=== PATIENT | female | born 1985 | race Caucasian/White ===

== ENCOUNTER 2016-10-29 04:24 | Emergency (ER) | payer OTHER ==
[~2016-10-29] VITALS: Ht 157.5 cm; Wt 40.8 kg
[2016-10-29 04:55] LABS: NEG OBC UR NEG; POS OBC UR POS
[2016-10-29 05:00] LABS: BILIRUBIN,URINE NEGATIVE (NEG); GLUCOSE,URINE NEGATIVE (NEG); NITRITE,URINE NEGATIVE (NEG); PH,URINE 5.5; PROTEIN,URINE NEGATIVE (NEG-TRACE); UROBILINOGEN,URINE 0.2 mg/dL (0.2 mg/dL)
[2016-10-29 05:07] LABS: BACTERIA,URINE FEW /HPF (0-FEW); RBC,URINE OCC /HPF (0-2); SQUAMOUS EPITHELIAL CELL,UR MOD /LPF
[2016-10-29] MEDS ORDERED: FENTANYL PF 100 MCG/2 ML VIAL. IV PRN (05:15)
[2016-10-29] MEDS ORDERED: ONDANSETRON PF 4 MG/2 ML VIAL. IV ONE (05:15)
[2016-10-29] MEDS ORDERED: IV NORMAL SALINE 1000ML BAG 1,000 ML IV SCH (05:15)
--- NOTE | 2016-10-29 05:18 | ED.ADGEN ---
Past Medical History Past Medical History: Unknown Additional Past Medical Histor: BARTHOLINS CYST Past Surgical History: No Surgical History Alcohol Use: None Drug Use: Marijuana Adult General Chief Complaint Chief Complaint: OTHER COMPLAINTS HPI HPI Patient is a 30 year old woman, history of a Bartholin's abscess, which she states was last drained about 3 months ago, has been drained once before, who presents emergency Department with complaint of right-sided pain. Patient states that she had a single episode of sharp shooting pain across her abdomen starting left side going to the right yesterday. She denies any fevers or chills , any headache, any weakness or tingling, any injuries. She states that she went to work today, was feeling generally unwell, so that she then had several episodes of vomiting, and developed pain in her right upper and right lower quadrants, radiating along this right side, that she is having pain with motion of her right lower extremity, denies any pelvic pain, any discharge or drainage , any urinary complaints. Denies any similar symptoms previously. Review of Systems Review of Systems Constitutional: Denies fever or chills. [] Eyes: Denies change in visual acuity. [] HENT: Denies nasal congestion or sore throat. [] Respiratory: Denies cough or shortness of breath. [] Cardiovascular: Denies chest pain or edema. [] GI: Right upper and right lower quadrant abdominal pain, associated with nausea , vomiting, no bloody stools or diarrhea. : Denies dysuria. [] Musculoskeletal: Denies back pain or joint pain. [] Integument: Denies rash. [] Neurologic: Denies headache, focal weakness or sensory changes. [] Endocrine: Denies polyuria or polydipsia. [] Lymphatic: Denies swollen glands. [] Psychiatric: Denies depression or anxiety. [] Current Medications Current Medications Current Medications Medications (Trade) Dose Ordered Sig/Naeem Start Time Stop Time Status Last Admin Dose Admin Fentanyl Citrate 25 mcg 25 mcg PRN Q15MIN PRN 10/29/16 05:15 10/29/16 08:26 DC 10/29/16 05:17 25 MCG Info (Do NOT chart on this entry -- for MONITORING) 1 each PRN DAILY PRN 10/29/16 06:30 10/29/16 08:26 DC Iohexol (Omnipaque 300 Mg/ml) 75 ml 1X ONCE 10/29/16 06:15 10/29/16 06:16 DC 10/29/16 06:21 75 ML Ondansetron HCl (Zofran) 4 mg 1X ONCE 10/29/16 05:15 10/29/16 05:16 DC 10/29/16 05:16 4 MG Sodium Chloride (Iv Sodium Chloride 0.9% 1000ml Bag) 1,000 ml @ 1,000 mls/hr Q1H 10/29/16 05:15 10/29/16 06:14 DC 10/29/16 05:16 1,000 MLS/HR Allergies Allergies Allergies Coded Allergies Type Severity Reaction Last Updated Verified Penicillins Allergy Unknown Hives 10/29/16 Yes sulfamethoxazole Allergy Unknown Hives 10/29/16 Yes trimethoprim Allergy Unknown Hives 10/29/16 Yes Physical Exam Physical Exam Constitutional: Well developed, well nourished, no acute distress, non-toxic appearance. [] HENT: Normocephalic, atraumatic, bilateral external ears normal, oropharynx moist, no oral exudates, nose normal. [] Eyes: PERRLA, EOMI, conjunctiva normal, no discharge. [] Neck: Normal range of motion, no tenderness, supple, no stridor. [] Cardiovascular:Heart rate regular rhythm, no murmur, S1, S2, rubs or gallops. [] Lungs & Thorax: Bilateral breath sounds clear to auscultation, no wheezing, rhonchi, rales. No chest wall tenderness or crepitus. [] Abdomen: Bowel sounds normal, soft, patient with moderate tenderness to palpation in the right upper quadrant, mild tenderness in the right lower quadrant, no no rebound, rigidity, no guarding, pelvic tenderness, no masses, no pulsatile masses. [] Skin: Warm, dry, no erythema, no rash. [] Back: No tenderness, no CVA tenderness. [] Extremities: No tenderness, no cyanosis, no clubbing, ROM intact, no edema. [] Neurologic: Alert and oriented X 3, normal motor function, normal sensory function, no focal deficits noted. [] Psychologic: Affect normal, judgement normal, mood normal. [] Current Patient Data Vital Signs Vital Signs Date Time Temp Pulse Resp B/P Pulse Ox O2 Delivery O2 Flow Rate FiO2 10/29/16 08:12 62 18 122/62 96 Room Air 10/29/16 04:31 98.0 98.0 Lab Values Laboratory Tests Test 10/29/16 04:40 White Blood Count 13.5x10^3/uL (4.0-11.0) H Red Blood Count 4.58x10^6/uL (3.50-5.40) Hemoglobin 14.5g/dL (12.0-15.5) Hematocrit 43.8% (36.0-47.0) Mean Corpuscular Volume 96fL (79-100) Mean Corpuscular Hemoglobin 32pg (25-35) Mean Corpuscular Hemoglobin Concent 33g/dL (31-37) Red Cell Distribution Width 12.7% (11.5-14.5) Platelet Count 283x10^3/uL (140-400) Neutrophils (%) (Auto) 68% (31-73) Lymphocytes (%) (Auto) 25% (24-48) Monocytes (%) (Auto) 6% (0-9) Eosinophils (%) (Auto) 0% (0-3) Basophils (%) (Auto) 1% (0-3) Neutrophils # (Auto) 9.2x10^3uL (1.8-7.7) H Lymphocytes # (Auto) 3.4x10^3/uL (1.0-4.8) Monocytes # (Auto) 0.7x10^3/uL (0.0-1.1) Eosinophils # (Auto) 0.1x10^3/uL (0.0-0.7) Basophils # (Auto) 0.1x10^3/uL (0.0-0.2) Urine Collection Type Unknown Urine Color Yellow Urine Clarity Clear Urine pH 5.5 Urine Specific [place] 1.020 Urine Protein Negativemg/dL (NEG-TRACE) Urine Glucose (UA) Negativemg/dL (NEG) Urine Ketones (Stick) 15mg/dL (NEG) Urine Blood Small (NEG) Urine Nitrite Negative (NEG) Urine Bilirubin Negative (NEG) Urine Urobilinogen Dipstick 0.2mg/dL (0.2 mg/dL) Urine Leukocyte Esterase Negative (NEG) Urine RBC Occ/HPF (0-2) Urine WBC 1-4/HPF (0-4) Urine Squamous Epithelial Cells Mod/LPF Urine Bacteria Few/HPF (0-FEW) Urine Mucus Mod/LPF Urine Test Negative (NEG) Sodium Level 137mmol/L (136-145) Potassium Level 4.2mmol/L (3.5-5.1) Chloride Level 102mmol/L (98-107) Carbon Dioxide Level 23mmol/L (21-32) Anion Gap 12 (6-14) Blood Urea Nitrogen 11mg/dL (7-20) Creatinine 0.7mg/dL (0.6-1.0) Estimated GFR (Cockcroft-Gault) 97.6 BUN/Creatinine Ratio 16 (6-20) Glucose Level 104mg/dL (70-99) H Calcium Level 9.4mg/dL (8.5-10.1) Total Bilirubin 0.4mg/dL (0.2-1.0) Aspartate Amino Transferase (AST) 30U/L (15-37) Alanine Aminotransferase (ALT) 24U/L (14-59) Alkaline Phosphatase 67U/L (46-116) Total Protein 8.4g/dL (6.4-8.2) H Albumin 4.1g/dL (3.4-5.0) Albumin/Globulin Ratio 1.0 (1.0-1.7) Lipase 128U/L (73-393) Urine Opiates Screen Neg (NEG) Urine Methadone Screen Neg (NEG) Urine Barbiturates Neg (NEG) Urine Phencyclidine Screen Neg (NEG) Urine Amphetamine/Methamphetamine Neg (NEG) Urine Benzodiazepines Screen Neg (NEG) Urine Cocaine Screen Neg (NEG) Urine Cannabinoids Screen Pos (NEG) Urine Ethyl Alcohol Neg (NEG) Laboratory Tests 10/29/16 04:40 Laboratory Tests 10/29/16 04:40 EKG EKG ECG: Rhythm strip: Heart rate 71 bpm, sinus rhythm, no ectopy. As interpreted by me. [] Radiology/Procedures Radiology/Procedures [] [facility] [address] [place] [address] IMAGING REPORT Signed PATIENT: SEAN STALEY ACCOUNT: [id number] : 1985 LOCATION: ER AGE: 30 SEX: F EXAM STATUS: REG ER ORD. PHYSICIAN: GARRISON MOREAU DO REASON: right upper and right lower quadrant pain PROCEDURE: ABDOMEN LTD Exam: Abdomen ultrasound Indication:rt side pain upper and lower into leg, no known injury, pt weighs 90lbs Reason: right upper and right lower quadrant pain / Spl. Instructions: / History: Technique: Multiple realtime grayscale sonographic images were obtained over the abdomen. Static images were submitted for interpretation. Findings: Visualized portions of the pancreas are unremarkable. The IVC is patent. The aorta is normal in caliber. The liver is normal in size measuring 15.4 cm. There is a normal hepatic echotexture. No focal lesions are identified. The gallbladder is nondistended. There is no evidence for cholelithiasis. There is no wall thickening, or pericholecystic fluid. The common bile duct is within normal limits measuring 3 mm in diameter. The Right kidney is normal in size measuring 10.5 x 4.2 x 3.6 cm. There is no evidence for mass, nephrolithiasis, or hydronephrosis. No ascites is identified. Impression: Normal gallbladder ultrasound. Electronically signed by: Iraj Sahni (Oct 29, 2016 06:05:00) DICTATED and SIGNED BY: IRAJ SAHNI MD DATE: 10/29/16604 CC: GARRISON MOREAU DO; NO PCP ~ Impressions: Abdominal pain Course & Med Decision Making Course & Med Decision Making Pertinent Labs and Imaging studies reviewed. (See chart for details) Patient is tender to palpation in the right upper and right lower quadrant, no fever, positive for nausea and vomiting, no injuries or other concerning symptoms, no complaints. Patient is agreeable to receiving pain medication, antinausea medication right fluids, an ultrasound, as she is thin eye movement and can visualize the appendix as well as the gallbladder to rule out abnormalities in both areas is the pain is having pain throughout this region and is difficult to pinpoint this time. Ultrasound obtained reveals an unremarkable gallbladder, however unable to visualize the appendix secondary to significant amount of gas in the right lower quadrant. Patient with leukocytosis of 13.5, no bandemia, mild shift. Otherwise laboratory studies are normal. I did discuss these findings with patient, she is feeling more comfortable received pain medication, but would like to proceed with CT imaging of the abdomen and pelvis to further elucidate her symptoms after lengthy discussion regarding risks versus benefit. Patient is resting comfortably at this time, awaiting imaging of the abdomen at time of shift change, above information discussed with Dr. Javier Armstrong, who will follow up with the patient' s imaging and disposition. I assumed care of the patient to follow-up on the CT scan did CT scan his trachea and amount. She is being discharged home. She is instructed use nonsteroidals or Tylenol for discomfort and ODT Zofran for nausea. She is instructed follow-up with primary care physician within a week if not better her symptoms get worse she can return the ER for worsening pain, uncontrolled nausea vomiting or other concerns. She is agreeable plan being discharged in stable condition at this time. Candida Rosenberg Disclaimer Dragon Disclaimer This electronic medical record was generated, in whole or in part, using a voice recognition dictation system. GARRISON MOREAU DO Oct 29, 2016 05:18 JAVIER STEWART MD Oct 29, 2016 08:07
[2016-10-29 05:19] LABS: BASO # 0.1 x10^3/uL (0.0-0.2); BASO % 1 % (0-3); EOS % 0 % (0-3); HEMATOCRIT 43.8 % (36.0-47.0); HEMOGLOBIN 14.5 g/dL (12.0-15.5); LYMPH # 3.4 x10^3/uL (1.0-4.8); LYMPH % 25 % (24-48); MEAN CORPUSCULAR HEMOGLOBIN 32 pg (25-35); MEAN CORPUSCULAR HGB CONC 33 g/dL (31-37); MEAN CORPUSCULAR VOLUME 96 fL (79-100); MONO % 6 % (0-9); NEUT % 68 % (31-73); PLATELET COUNT 283 x10^3/uL (140-400); RED BLOOD COUNT 4.58 x10^6/uL (3.50-5.40); RED CELL DISTRIBUTION WIDTH 12.7 % (11.5-14.5); WHITE BLOOD COUNT 13.5 x10^3/uL (4.0-11.0)
[2016-10-29 05:25] LABS: CALCIUM 9.4 mg/dL (8.5-10.1); CREATININE 0.7 mg/dL (0.6-1.0); GFR 97.6; POTASSIUM 4.2 mmol/L (3.5-5.1)
--- NOTE | 2016-10-29 05:27 | ACF ---
Admission Forms Criteria ABDOMINAL PAIN: OBSERVATION CARE USE THIS FORM ONLY WHEN INPATIENT ADMISSION CRITERIA ARE NOT MET. (Place X for any and all applicable criteria): Placement for observation care is indicated for a patient with ANY ONE of the following(1)(2)(3)(4)(5))(6): [X]I. Suspected condition requiring continued monitoring (e.g., ectopic , appendicitis) [A] []II. Undiagnosed pain after evaluation and initial treatment with ANY ONE of the following: []a) Continued pain unrelieved by symptomatic treatment []b) Patient unable to maintain hydration status []c) Concerning finding on examination (e.g., increasing tenderness, focal abdominal finding) or diagnostic testing (e.g., air fluid level on x-ray) []III. A child whose situation includes ANY ONE of the following: []a) Clinical response to outpatient therapy uncertain []b) Outpatient supervision by parents or caregivers uncertain []IV. Other observation care needs. (Also use General Criteria: Observation Care). The original [facility] [employer] content created by [facility] [employer] has been revised. The portions of the content which have been revised are identified through the use of italic text, and [facility] has neither reviewed nor approved the modified material. All other unmodified content is copyright [facility] [employer]. Please see references footnoted in the original [facility] edition 2016 Admission Criteria Met?: Yes DERICK CONNELLY Oct 29, 2016 05:27
[2016-10-29 05:32] LABS: ALBUMIN 4.1 g/dL (3.4-5.0); BARBITURATES NEG (NEG); BENZODIAZEPINES NEG (NEG); CANNABINOIDS POS (NEG); COCAINE NEG (NEG); ETHANOL, URINE NEG (NEG); METHADONE NEG (NEG); OPIATES NEG (NEG); PHENCYCLIDINE NEG (NEG); TOTAL BILIRUBIN 0.4 mg/dL (0.2-1.0); TOTAL PROTEIN 8.4 g/dL (6.4-8.2)
--- NOTE | 2016-10-29 06:06 | RAD ---
Exam: Abdomen ultrasound Indication:rt side pain upper and lower into leg, no known injury, pt weighs 90lbs Reason: right upper and right lower quadrant pain / Spl. Instructions: / History: Technique: Multiple realtime grayscale sonographic images were obtained over the abdomen. Static images were submitted for interpretation. Findings: Visualized portions of the pancreas are unremarkable. The IVC is patent. The aorta is normal in caliber. The liver is normal in size measuring 15.4 cm. There is a normal hepatic echotexture. No focal lesions are identified. The gallbladder is nondistended. There is no evidence for cholelithiasis. There is no wall thickening, or pericholecystic fluid. The common bile duct is within normal limits measuring 3 mm in diameter. The Right kidney is normal in size measuring 10.5 x 4.2 x 3.6 cm. There is no evidence for mass, nephrolithiasis, or hydronephrosis. No ascites is identified. Impression: Normal gallbladder ultrasound. Electronically signed by: Iraj Sahni (Oct 29, 2016 06:05:00)
[2016-10-29] MEDS ORDERED: IOHEXOL 300 MG/ML 75 ML VIAL IV ONE (06:15)
[2016-10-29] MEDS ORDERED: CONTRAST GIVEN MC PRN (06:30)
--- NOTE | 2016-10-29 06:46 | RAD ---
PQRS STATEMENT One or more of the following individualized dose reduction techniques were utilized for this study: 1.Automated exposure control. 2.Adjustment of the mA and/orkVaccording to patient size. 3.Use of iterative reconstruction technique. Indication:right sided abdomen pain x one day
75ml omni 300 Reason: RLQ pain/n/v / Spl. Instructions: / History: Comparison: none available Technique: multiple contiguous axial images were obtained through the abdomen and pelvis after intravenous administration of iodinated contrast. Coronal and sagittal reformations were created. Findings: The lung bases are clear. The heart size is normal. The liver is mildly enlarged measuring 19 centimeters in length. No focal lesions. The gallbladder is nondistended. The pancreas is unremarkable. The spleen and adrenal glands are within normal limits. The kidneys demonstrate no hydronephrosis or mass. The abdominal aorta is normal in caliber. There is no ascites or adenopathy. The appendix is normal. The bowel loops are normal in caliber. The urinary bladder is within normal limits. No destructive osseous lesion is identified. Impression: Mild hepatomegaly. No ascites or inflammatory mass. Normal appendix.] Electronically signed by: Iraj Sahni (Oct 29, 2016 06:45:39)
[2016-10-29] MEDS ORDERED: ONDA4TAB10 SL (08:09)
[2016-10-29 08:12] VITALS: BP 122/62
== END 2016-10-29 08:26 | disposition home or self-care (01) ==
LOC: ER 04:24
DX: R10.31 Right lower quadrant pain (principal); R11.2 Nausea with vomiting, unspecified; D72.829 Elevated white blood cell count, unspecified; F12.10 Cannabis abuse, uncomplicated; Z88.0 Allergy status to penicillin
CPT/HCPCS: 36415; 74177; 76705; 80053; 81001; 81025; 83690; 85027; 96361; 96374; 96375; 99285; G0481; J2405; J3010; J7030; Q9967

== ENCOUNTER 2017-01-07 19:47 | Emergency (ER) | payer OTHER ==
[~2017-01-07] VITALS: Ht 157.5 cm; Wt 40.8 kg
[~2017-01-07 19:47] MED LIST: ONDA4TAB10 SL
[2017-01-07 19:58] VITALS: BP 116/80
--- NOTE | 2017-01-07 20:26 | PHYS DOC ---
Past Medical History Past Medical History: Unknown Additional Past Medical Histor: BARTHOLINS CYST Past Surgical History: No Surgical History Alcohol Use: Rarely Drug Use: Marijuana Adult General Chief Complaint Chief Complaint: LACERATION/AVULSION [facility] HPI Patient is a 31 year old female presents emergency Department with complaint of a laceration to her right forearm lacerations to her left index and middle finger secondary to a complaint that she dropped while she was washing dishes. She says that the cracked and causing subsequent lacerations as described. Patient denies any shattered of any fragments into her eyes. She does not remember when she got her last tetanus shot. Review of Systems Review of Systems Constitutional: Denies fever or chills [] Eyes: Denies change in visual acuity, redness, or eye pain [] HENT: Denies nasal congestion or sore throat [] Respiratory: Denies cough or shortness of breath [] Cardiovascular: No additional information not addressed in HPI [] GI: Denies abdominal pain, nausea, vomiting, bloody stools or diarrhea [] : Denies dysuria or hematuria [] Musculoskeletal: Denies back pain or joint pain [] Integument: Denies rash or skin lesions [] Neurologic: Denies headache, focal weakness or sensory changes [] Endocrine: Denies polyuria or polydipsia [] Current Medications Current Medications Current Medications Medications (Trade) Dose Ordered Sig/Naeem Start Time Stop Time Status Last Admin Dose Admin Diphtheria/ Tetanus/Acell Pertussis (Boostrix) 0.5 ml ONCE ONCE 01/07/17 20:30 01/07/17 20:31 DC 01/07/17 20:39 0.5 ML Allergies Allergies Allergies Coded Allergies Type Severity Reaction Last Updated Verified Penicillins Allergy Unknown Hives 10/29/16 Yes sulfamethoxazole Allergy Unknown Hives 10/29/16 Yes trimethoprim Allergy Unknown Hives 10/29/16 Yes Physical Exam Physical Exam Constitutional: Well developed, well nourished, no acute distress, non-toxic appearance. [] HENT: Normocephalic, atraumatic, bilateral external ears normal, oropharynx moist, no oral exudates, nose normal. [] Eyes: PERRLA, EOMI, conjunctiva normal, no discharge. [] Neck: Normal range of motion, no tenderness, supple, no stridor. [] Cardiovascular:Heart rate regular rhythm, no murmur [] Lungs & Thorax: Bilateral breath sounds clear to auscultation [] Abdomen: Bowel sounds normal, soft, no tenderness, no masses, no pulsatile masses. [] Skin: Warm, dry, no erythema, no rash. [] Back: No tenderness, no CVA tenderness. [] Extremities: 2 cm laceration to left forearm that does not extend past the dermis. It does not gap. There is no exposed subcutaneous fat. This is to the distal third of the forearm. Subcentimeter, superficial laceration to the middle phalanx of the right middle finger and proximal phalanx of the right index finger. These do not extend into the dermis. It did not involve joint space her fingernails. Extensor and flexor mechanisms are intact in these 2 fingers at both the PIPJ and DIPJ. Neurologic: Alert and oriented X 3, normal motor function, normal sensory function, no focal deficits noted. [] Psychologic: Affect normal, judgement normal, mood normal. [] Current Patient Data Vital Signs Vital Signs Date Time Temp Pulse Resp B/P Pulse Ox O2 Delivery O2 Flow Rate FiO2 01/07/17 19:58 98.1 78 20 96 Room Air 98.1 EKG EKG [] Radiology/Procedures Radiology/Procedures [] Course & Med Decision Making Course & Med Decision Making The 3 superficial lacerations as noted were cleansed with wound cleanser and rinsed with saline. They were approximated utilizing Steri-Strips. This was performed by Mamta, emergency medicine RN. Shakira Disclaimer Shakira Disclaimer This electronic medical record was generated, in whole or in part, using a voice recognition dictation system. Departure Departure Impression: Primary Impression: Multiple lacerations Disposition: HOME, SELF-CARE Condition: IMPROVED Referrals: NO PCP (PCP) Patient Instructions: Diphtheria Toxoid; Tetanus Toxoid Adsorbed, DT, Td, Sterile Tape Wound Closure Additional Instructions: 1. The cuts that you have are very superficial and will heal fine. The Steri- Strips will eventually come off on their own. Do not pull them off. You're okay to shower and wash your hands. Do not soak your hands or forearm. 2. Review the discharge instructions provided for self-care and reasons to return to the emergency department. 3. You can take acetaminophen every 4-6 hours or ibuprofen every 8 hours for the discomfort. 4. Follow-up with a primary care doctor's office within 4-5 days if concerned about wound healing. YUNEIR GARCIA Jan 07, 2017 20:26
[2017-01-07] MEDS ORDERED: DIPHTH,PERTUSS(ACELL),TET TOX 0.5 ML DISP.SYRIN. VAX IM ONE (20:30)
== END 2017-01-07 20:48 | disposition home or self-care (01) ==
LOC: ER 19:47
DX: S51.811A Laceration without foreign body of right forearm, initial encounter (principal); S61.211A Laceration without foreign body of left index finger without damage to nail, initial encounter; S61.213A Laceration without foreign body of left middle finger without damage to nail, initial encounter; F12.10 Cannabis abuse, uncomplicated; Z88.0 Allergy status to penicillin; Z88.1 Allergy status to other antibiotic agents; W45.8XXA Other foreign body or object entering through skin, initial encounter; Y93.G1 Activity, food preparation and clean up; Y92.89 Other specified places as the place of occurrence of the external cause; Y99.8 Other external cause status
CPT/HCPCS: 90471; 90715; 99283-25

== ENCOUNTER → 2018-12-03 | Outpatient (CLI) | payer OTHER ==
[2018-06-18 10:28] VITALS: BP 110/73
[~2018-12-03] MED LIST changes: +CLIN300C8 PO
--- NOTE | 2018-12-03 13:47 | KCIC ---
PA and lateral chest x-ray without comparison for cough for a few months, productive, history of smoking. FINDINGS: Lungs are hyperinflated and the diaphragms are flattened suggesting COPD. No pneumothorax, pleural effusion, congestive heart failure, or focal infiltrate is identified. A tiny calcified granuloma is seen in the right midlung peripherally. Heart size within normal limits. No osseous abnormalities. IMPRESSION: 1. Hyperinflation suggestive of COPD with no acute cardiopulmonary abnormality. Electronically signed by: Mannie Goetz MD (12/03/2018 1:45 PM) [id number]
== END | disposition home or self-care (01) ==
LOC: KCIC 09:12
PROVIDERS: ATTEND Family Medicine
DX: R05 Cough (principal); Z87.891 Personal history of nicotine dependence
CPT/HCPCS: 71046

== ENCOUNTER → 2019-04-07 | Outpatient (CLI) | payer OTHER ==
[2018-06-18 10:28] VITALS: BP 110/73
--- NOTE | 2019-04-08 13:41 | KCIC ---
Examination: 3 views of the right hand History right hand pain COMPARISON: None available FINDINGS: The alignment of the metacarpophalangeal joints, interphalangeal joints grossly appears unremarkable. There is no acute fracture or dislocation identified. IMPRESSION: No acute osseous findings. Electronically signed by: Delvis Wilkins MD (04/08/2019 1:39 PM) [id number]
== END | disposition home or self-care (01) ==
LOC: KCIC 16:10
PROVIDERS: ATTEND Family Medicine
DX: M79.641 Pain in right hand (principal)
CPT/HCPCS: 73130

== ENCOUNTER → 2019-11-02 | Outpatient (CLI) | payer OTHER ==
[2018-06-18 10:28] VITALS: BP 110/73
--- NOTE | 2019-11-03 09:37 | KCIC ---
Examination: RIBS RIGHT History: Acute right-sided pain Comparison/Correlation: None Findings: Tunneled images of the right ribs were obtained. Right ribs are intact. No fracture or bone destruction. Right lung field is clear. No right-sided pneumothorax. Impression: No suspicious right rib process. Electronically signed by: Giancarlo Walker MD (11/03/2019 9:34 AM) [facility]
== END | disposition home or self-care (01) ==
LOC: KCIC 14:41
PROVIDERS: ATTEND Family Medicine
DX: M54.6 Pain in thoracic spine (principal)
CPT/HCPCS: 71100

== ENCOUNTER → 2019-11-05 | Outpatient (CLI) | payer OTHER ==
[2018-06-18 10:28] VITALS: BP 110/73
--- NOTE | 2019-11-05 17:32 | KCIC ---
Renal ultrasound 11/05/2019 CLINICAL HISTORY: Right flank pain. TECHNIQUE: A real-time ultrasound examination of both kidneys and the urinary bladder was performed. Multiple images were obtained. FINDINGS: Both kidneys are within normal limits in size and echogenicity and measures 10.1 cm in length. No focal abnormality of either kidney is seen. There is no evidence of hydronephrosis. No renal calculus is noted. The urinary bladder is distended with urine. No abnormality is seen. IMPRESSION: Negative study. Electronically signed by: Mo Cruz MD (11/05/2019 5:28 PM) [id number]
== END | disposition home or self-care (01) ==
LOC: KCIC US 14:40
PROVIDERS: ATTEND Family Medicine
DX: N32.89 Other specified disorders of bladder (principal)
CPT/HCPCS: 76770

== ENCOUNTER 2020-02-14 15:44 | Emergency (ER) | payer OTHER ==
[~2020-02-14] VITALS: Ht 157.5 cm; Wt 45.0 kg
[2020-02-14 15:48] VITALS: BP 123/65
[2020-02-14 16:16] LABS: BILIRUBIN,URINE NEGATIVE (NEG); CLARITY,URINE CLEAR; COLOR,URINE YELLOW; NITRITE,URINE NEGATIVE (NEG); PROTEIN,URINE NEGATIVE (NEG-TRACE); UROBILINOGEN,URINE 0.2 mg/dL (0.2 mg/dL)
[2020-02-14 16:20] LABS: BARBITURATES NEG (NEG); BENZODIAZEPINES POS (NEG); CANNABINOIDS POS (NEG); COCAINE NEG (NEG); METHADONE NEG (NEG); OPIATES NEG (NEG); PHENCYCLIDINE NEG (NEG)
[2020-02-14 16:21] LABS: AMPHETAMINE/METHAMPHETAMINE NEG (NEG)
[2020-02-14 16:29] LABS: BACTERIA,URINE FEW /HPF (0-FEW); RBC,URINE OCC /HPF (0-2); SQUAMOUS EPITHELIAL CELL,UR MOD /LPF; WBC,URINE RARE /HPF (0-4)
--- NOTE | 2020-02-14 16:49 | RAD ---
EXAM: Pelvic sonogram. HISTORY: Vaginal bleeding. TECHNIQUE: Transabdominal and transvaginal sonographic imaging of the pelvis was performed. COMPARISON: None. FINDINGS: The uterus is normal in size. The endometrial stripe is thin, measuring 2.8 mm. The ovaries are normal in size and demonstrate normal blood flow. There is a dominant right ovarian follicle measuring 10 mm. There is no pelvic free fluid. IMPRESSION: 1. Thin endometrial stripe. 2. Otherwise, relatively unremarkable pelvic sonogram. Electronically signed by: Josefina Macario MD (02/14/2020 4:47 PM) [id number]
--- NOTE | 2020-02-14 19:02 | PHYS DOC ---
Past Medical History Past Medical History: Anxiety, Arthritis, Bartholin Cyst, Depression, Unknown, Other Additional Past Medical Histor: PANIC ATTACKS,CHRONIC PAIN (CORTES TEJEDA APRN) Past Surgical History: No Surgical History (CORTES TEJEDA APRN) Smoking Status: Current Every Day Smoker Additional Information: 1 PPD Alcohol Use: Rarely Drug Use: Marijuana (CORTES TEJEDA APRN) General Adult EDM: Chief Complaint: VAGINAL BLEEDING HPI: HPI: Patient is a 34 year old female who presents with c/o of black blood noted when she wiped herself today after voiding. Reports being on Depo shots and has not had a period for 2 years. Reports slight abdominal/pelvic pressure type pain. (CORTES TEJEDA APRN) Review of Systems: Review of Systems: Constitutional: Denies fever or chills. [] GI: Reports pelvic pain with vag bleeding. Denies nausea, vomiting, bloody stools or diarrhea. [] : Denies dysuria. [] Musculoskeletal: Denies back pain or joint pain. [] Integument: Denies rash. [] Neurologic: Denies headache, focal weakness or sensory changes. [] Psychiatric: Denies depression or anxiety. [] (CORTES TEJEDA APRN) Heart Score: Risk Factors: Risk Factors: DM, Current or recent (<one month) smoker, HTN, HLP, family history of CAD, obesity. Risk Scores: Score 0 - 3: 2.5% MACE over next 6 weeks - Discharge Home Score 4 - 6: 20.3% MACE over next 6 weeks - Admit for Clinical Observation Score 7 - 10: 72.7% MACE over next 6 weeks - Early Invasive Strategies (CORTES TEJEDA APRN) Allergies: Allergies: Allergies Coded Allergies Type Severity Reaction Last Updated Verified Penicillins Allergy Unknown Hives 10/29/16 Yes sulfamethoxazole Allergy Unknown Hives 10/29/16 Yes trimethoprim Allergy Unknown Hives 10/29/16 Yes (CORTES TEJEDA APRN) Physical Exam: PE: Constitutional: Well developed, well nourished, no acute distress, non-toxic appearance. [] Abdomen: Bowel sounds normal, soft, no tenderness, no masses, no pulsatile masses. [] pelvic exam-trace amount of spotting noted on exam. No CMT, no adnexal tenderness. Skin: Warm, dry, no erythema, no rash. [] Back: No tenderness, no CVA tenderness. [] Extremities: No tenderness, no cyanosis, no clubbing, ROM intact, no edema. [] Neurologic: Alert and oriented X 3, normal motor function, normal sensory function, no focal deficits noted. [] Psychologic: Affect normal, judgement normal, mood normal. [] (CORTES TEJEDA APRN) Current Patient Data: Labs: Laboratory Tests Test 02/14/20 15:50 02/14/20 16:02 Urine Collection Type Void Urine Color Yellow Urine Clarity Clear Urine pH 6.0 (<5.0-8.0) Urine Specific [place] 1.015 (1.000-1.030) Urine Protein Negative mg/dL (NEG-TRACE) Urine Glucose (UA) Negative mg/dL (NEG) Urine Ketones (Stick) Negative mg/dL (NEG) Urine Blood Small (NEG) Urine Nitrite Negative (NEG) Urine Bilirubin Negative (NEG) Urine Urobilinogen Dipstick 0.2 mg/dL (0.2 mg/dL) Urine Leukocyte Esterase Negative (NEG) Urine RBC Occ /HPF (0-2) Urine WBC Rare /HPF (0-4) Urine Squamous Epithelial Cells Mod /LPF Urine Bacteria Few /HPF (0-FEW) Urine Mucus Slight /LPF Urine Opiates Screen Neg (NEG) Urine Methadone Screen Neg (NEG) Urine Barbiturates Neg (NEG) Urine Phencyclidine Screen Neg (NEG) Urine Amphetamine/Methamphetamine Neg (NEG) Urine Benzodiazepines Screen Pos (NEG) Urine Cocaine Screen Neg (NEG) Urine Cannabinoids Screen Pos (NEG) Urine Ethyl Alcohol Neg (NEG) POC Urine HCG, Qualitative Hcg negative (Negative) Microbiology 02/14/20 Wet Prep - Final, Complete Vital Signs: Vital Signs Date Time Temp Pulse Resp B/P (MAP) Pulse Ox O2 Delivery O2 Flow Rate FiO2 02/14/20 15:48 97.9 75 19 123/65 (84) 100 Room Air 97.9 (CORTES TEJEDA APRN) EKG: EKG: [] (CORTES TEJEDA APRN) Radiology/Procedures: Radiology/Procedures: [] (CORTES TEJEDA APRN) Course & Med Decision Making: Course & Med Decision Making Pertinent Labs and Imaging studies reviewed. (See chart for details) Patient is a 34 year old female who presents with c/o of black blood noted when she wiped herself today after voiding. Reports being on Depo shots and has not had a period for 2 years. Reports slight abdominal/pelvic pressure type pain. Negative pelvic ultrasound is negative. Urine + for UTI d/c with Macrobid F/u with OB, she has appointment early March. (CORTES TEJEDA APRN) Dragon Disclaimer: Dragon Disclaimer: This electronic medical record was generated, in whole or in part, using a voice recognition dictation system. (CORTES TEJEDA APRN) Departure Departure Impression: Primary Impression: UTI (urinary tract infection) Qualified Codes: N39.0 - Urinary tract infection, site not specified Additional Impressions: Pelvic pain Dysfunctional uterine bleeding Disposition: HOME, SELF-CARE Condition: STABLE Referrals: Domenic BRITO MD (PCP) Attending Signature Attending Signature I have reviewed the PA/MANAGER USER EXPERIENCE's note and plan of care. I was available for consultation as needed during the patient's visit in the emergency department. I agree with the clinical impression, plan, and disposition. (ROGERS SMART DO) CORTES TEJEDA APRN February 14, 2020 19:02 ROGERS SAMRT DO February 14, 2020 22:40
[2020-02-15 16:09] LABS: GC PROBE Negative (Negative)
== END 2020-02-14 18:47 | disposition home or self-care (01) ==
LOC: ER 15:44
DX: N39.0 Urinary tract infection, site not specified (principal); N93.8 Other specified abnormal uterine and vaginal bleeding; R10.2 Pelvic and perineal pain; G89.29 Other chronic pain; F17.200 Nicotine dependence, unspecified, uncomplicated; Z88.0 Allergy status to penicillin; Z88.1 Allergy status to other antibiotic agents; Z88.2 Allergy status to sulfonamides
CPT/HCPCS: 76830; 76856; 80307; 81001; 81025; 87491; 87591; 99284; Q0111

== ENCOUNTER → 2020-06-12 | Outpatient (CLI) | payer OTHER ==
[~2020-06-12] MED LIST changes: +ALBU2.5V8 INH; +ALPR1TAB6 PO; +METH500T7 PO; +OXYC1TAB15 PO; +PRAZ1CAP2 PO; +QUET25TA PO
== END | disposition home or self-care (01) ==
LOC: LAB 13:07
PROVIDERS: ATTEND Obstetrics & Gynecology
DX: Z20.828 Contact with and (suspected) exposure to other viral communicable diseases (principal)
CPT/HCPCS: U0003-CS

== ENCOUNTER 2020-06-15 06:08 | Day surgery (SDC) | payer OTHER ==
[~2020-06-15] VITALS: Ht 157.5 cm; Wt 43.5 kg
[~2020-06-15 06:08] MED LIST changes: +AZTREONAM IV Push 1 GM VIAL. IVP PRN; +CLINDAMYCIN 900MG PREMIX 50 ML IV PRN; -OXYC1TAB15 PO
[2020-06-15] MEDS ORDERED: SURGICEL HEMOSTAT 4X8 EACH. ONE (06:57)
[2020-06-15] MEDS ORDERED: BUPIVACAINE-EPI 0.5%-1:200000 MPF 30 ML VIAL. ONE (06:57)
[2020-06-15] MEDS ORDERED: ONDANSETRON PF 4 MG/2 ML VIAL. IV PRN (07:00)
[2020-06-15] MEDS ORDERED: IV RINGERS,LACTATED 1000ML 1,000 ML IV SCH (07:00)
[2020-06-15] MEDS ORDERED: LIDOCAINE 1% PF 2 ML VIAL. ID PRN (07:00)
[2020-06-15] MEDS ORDERED: fentaNYL PF VIAL 100 MCG/2 ML VIAL IV PRN ×2 (07:00)
[2020-06-15] MEDS ORDERED: MORPHINE SULFATE 2 MG/ML VIAL. IV PRN (07:00)
[2020-06-15] MEDS ORDERED: HYDROmorphone 2 MG/ML VIAL IV PRN (07:00)
[2020-06-15] MEDS ORDERED: PROCHLORPERAZINE 10 MG/2 ML VIAL. IV PRN (07:00)
[2020-06-15] MEDS ORDERED: SCOPOLAMINE 1.5MG PATCH. TD ONE (07:30)
[2020-06-15] MEDS ORDERED: GLYCOPYRROLATE 1 MG/5 ML VIAL. ONE (07:35)
[2020-06-15] MEDS ORDERED: fentaNYL PF VIAL 100 MCG/2 ML VIAL ONE ×2 (07:35→08:57)
[2020-06-15] MEDS ORDERED: MIDAZOLAM HCL/PF 2 MG/2 ML VIAL. ONE (07:35)
[2020-06-15] MEDS ORDERED: SEVOFLURANE 61 TO 120 MINUTES. IH ONE (07:35)
[2020-06-15] MEDS ORDERED: ROCURONIUM 50 MG/5 ML VIAL. ONE (07:36)
[2020-06-15] MEDS ORDERED: NEOSTIGMINE METHYLSULFATE 5 MG/5 ML SYRINGE. ONE (07:36)
--- NOTE | 2020-06-15 08:54 | PDOC ---
BRIEF OPERATIVE NOTE Date: Jun 15, 2020 Pre-Op Diagnosis Chronic Pelvic Pain Post-Op Diagnosis SAme Procedure Performed [facility] Surgeon Dr. Scott Anesthesia Type: General Blood Loss less than 5 ml Specimens Obtained none Findings nml size uterus, nml fallopian tubes and ovaries antonio., nml appendix; no evidence endometriosis Complications none Operative Note see dictation VERONICA SCOTT Jr, MD Jun 15, 2020 08:54
--- NOTE | 2020-06-15 08:56 | DISCH ---
DISCHARGE INSTRUCTIONS Condition on Discharge Condition on Discharge: Stable Activity After Discharge Activity Instructions for Disc: Activity as tolerated Lifting Instructions after Dis: No heavy lifting Driving Instructions after Dis: Do not drive today Diet after Discharge Diet after Discharge: Regular Contacting the DRLinda after DC Call your doctor for: Concerns you may have Follow-Up Follow up with: Dr. Scott in 1 wk VERONICA SCOTT Jr, MD Jun 15, 2020 08:56
[2020-06-15] MEDS ORDERED: OXYC1TAB15 PO (09:12)
[2020-06-15] MEDS ORDERED: oxyCODONE/APAP 5/325 1 TAB TABLET PO ONE (09:15)
[2020-06-15 09:35] VITALS: BP 122/76
--- NOTE | 2020-06-15 09:37 | OP ---
DATE OF SURGERY: 06/15/2020 PREOPERATIVE DIAGNOSIS: Chronic pelvic pain. POSTOPERATIVE DIAGNOSIS: Chronic pelvic pain. PROCEDURE: Diagnostic laparoscope. SURGEON: Akshat Scott MD ANESTHESIA: GETA. ESTIMATED BLOOD LOSS: Less than 5 mL. COMPLICATIONS: None. FINDINGS: Normal size uterus. Normal fallopian tubes and ovaries bilaterally. Normal appendix. No evidence of endometriosis. SUMMARY: A 34-year-old 1, para 1 with 5-year history of chronic pelvic pain. The patient was counseled on risks, benefits and expectations of laparoscopic possible resection of endometriosis and voiced her clear understanding to proceed. DESCRIPTION OF PROCEDURE: The patient was taken to surgery suite and placed in dorsal lithotomy position. She was prepped with Betadine for vaginal prep and ChloraPrep for abdominal prep. After adequate anesthesia, bivalve speculum was placed vaginally. A single-tooth tenaculum was placed on the anterior lip of the cervix. Due to some traction from the single tooth tenaculum, the anterior cervix had mild laceration with some minimal bleeding. Therefore, ring forceps clamp was placed on the cervix to tamponade the bleeding as well as to manipulate the cervix and uterus. Attention was now placed on the abdomen. A small transverse skin incision was made just below the umbilicus with a scalpel. The Veress needle was then placed through the infraumbilical incision site. The abdomen was allowed to insufflate up to 1.5 liters of CO2 gas. The Veress needle was then removed. A 5 mm trocar was placed. Scope was positioned. The uterus appeared normal in size. The bladder area appeared normal. The fallopian tubes and ovaries appeared normal bilaterally. There was no evidence of endometriosis and the broad ligament or posterior aspect of the uterus and cervix. Appendix appeared normal. Liver appeared normal. There were no adhesions of any source. The scope was then removed as well as the trocar. The abdomen was allowed to deflate as much as possible along with mechanical manipulation. The skin incisions were reapproximated using 4-0 Vicryl suture in subcuticular manner. A 0.5% Marcaine with epinephrine was injected at the incision site. The ring forceps was then removed from the cervix, which the cervix was hemostatic. The patient tolerated the procedure well and was taken to recovery room in stable condition. Sponge and needle count correct x 3. AKSHAT SCOTT MD DR: WALTER/harry JOB#: [id number] / [id number]
== END 2020-06-15 10:05 | disposition home or self-care (01) ==
LOC: SURG 06:08
PROVIDERS: ATTEND Obstetrics & Gynecology
DX: R10.2 Pelvic and perineal pain (principal); G89.29 Other chronic pain; Z88.0 Allergy status to penicillin; Z88.8 Allergy status to other drugs, medicaments and biological substances; Z79.899 Other long term (current) drug therapy; Z87.891 Personal history of nicotine dependence
CPT/HCPCS: 58662; 81025; A7015; J2250; J2710; J3010; J3490; J7030; J7120

== ENCOUNTER → 2020-07-04 | Outpatient (CLI) | payer OTHER ==
[2020-06-15 09:35] VITALS: BP 122/76
[~2020-07-04] MED LIST changes: -AZTREONAM IV Push 1 GM VIAL. IVP PRN; -CLINDAMYCIN 900MG PREMIX 50 ML IV PRN; +OXYC1TAB15 PO
--- NOTE | 2020-07-04 17:02 | KCIC ---
EXAMINATION: MRI RIGHT SHOULDER WITHOUT IV CONTRAST CLINICAL HISTORY: Right shoulder pain following recent pulling injury with pain and limited range of motion TECHNIQUE: Multiplanar multisequential images obtained through the shoulder without intravenous contrast. COMPARISON: None FINDINGS: TENDONS: - Supraspinatus: Within normal limits. - Infraspinatus: Mild tendinosis without discrete tear. - Subscapularis: Within normal limits. - Teres Minor: Within normal limits. - Biceps Tendon: The long head biceps tendon is intact and appropriately located. MUSCLES: Muscle bulk and signal intensity are within normal limits. LABRUM: Posterior and inferior labral degeneration without discrete tear. GLENOHUMERAL JOINT: - Joint Fluid: No joint effusion or synovitis. - Cartilage: Within normal limits. ACROMIOCLAVICULAR JOINT: Within normal limits. BONES/MARROW: No evidence of acute fracture or suspicious marrow replacing process. Chronic reactive changes in the posterior greater tuberosity. OTHER: No other significant abnormality identified. IMPRESSION: Mild infraspinatus tendinosis. No full-thickness rotator cuff tear. Electronically signed by: Ronald Whyte DO (07/04/2020 4:59 PM) [id number]
== END | disposition home or self-care (01) ==
LOC: KCIC MRI 12:52
PROVIDERS: ATTEND Family Medicine
DX: M75.41 Impingement syndrome of right shoulder (principal); M75.91 Shoulder lesion, unspecified, right shoulder
CPT/HCPCS: 73221

== ENCOUNTER → 2020-08-31 | Outpatient (CLI) | payer OTHER ==
--- NOTE | 2020-08-31 16:29 | KCIC ---
Cervical spine open-mouth, AP and lateral x-rays 3 views HISTORY: Cervicalgia FINDINGS: No prevertebral soft tissue swelling. Cervical vertebral body height and alignment intact. Intervertebral disc height preserved. No fracture of the cervical spine evident. C2 odontoid intact on the open-mouth and lateral views. IMPRESSION: Normal exam. Electronically signed by: Yuniel Skinner MD (08/31/2020 4:25 PM) [facility]
== END ==
LOC: KCIC 14:50
PROVIDERS: ATTEND Family Medicine
DX: M54.2 Cervicalgia (principal)
CPT/HCPCS: 72040

== ENCOUNTER → 2021-07-16 | Outpatient (CLI) | payer MEDICAID ==
[~2021-07-16] MED LIST changes: +CLIN-94 PO; -CLIN300C8 PO; +GADOTERATE 7.5 MMOL/15ML VIAL. INT ART ONE; +IOHEXOL 300 MG/ML 50 ML VIAL. INT ART ONE; +LIDOCAINE 1% Multi-Dose 20 ML VIAL. ID ONE; +METH-561 PO; -METH500T7 PO; -QUET25TA PO; +QUET25TA3 PO
--- NOTE | 2021-07-16 16:05 | KCIC ---
EXAM: Cervical spine MRI without contrast. HISTORY: Cervical radiculopathy. TECHNIQUE: Multiplanar, multisequence magnetic resonance imaging of the cervical spine was performed without contrast. COMPARISON: Radiographs dated 08/31/2020. FINDINGS: There is no listhesis. The vertebral bodies are normal in height and the disc spaces are pr eserved. There is no fracture or suspicious osseous lesion. There is a tiny osseous hemangioma within T1. No cervical spinal cord lesion is seen. The posterior fossa is unremarkable. There is no signifi cant foraminal or central canal stenosis. IMPRESSION: No acute finding or significant cervical foraminal or central canal stenosis. Electronically signed by: Josefina Macario MD (07/16/2021 4:03 PM) [id number]
--- NOTE | 2021-07-16 16:59 | KCIC ---
EXAM: Fluoroscopically guided right glenohumeral joint injection for MRI arthrogram INDICATION: Right shoulder pain and limited range of motion COMPARISON: None TECHNIQUE/FINDINGS: The purpose of the procedure and risks including infection, bleeding, contrast reaction, and pain wer e discussed with the patient. Informed consent was obtained. A timeout was performed. After obtaining consent, the patient was placed supine on the fluoroscopy table with the right should er externally rotated. The skin overlying the right shoulder was marked, sterilized and draped. Sup erficial and deep soft tissues were anesthetized with 1% lidocaine. Utilizing fluoroscopic guidance, a 22-gauge 3.5" needle was advanced into the joint. Intraarticular position was confirmed with injec tion of a small amount of iodinated contrast. Subsequently, 13 mm of a solution containing the follo wing items was instilled into the joint: 10 mL of 1% lidocaine, 5 mL of sterile saline, 5 mL of non- ionic iodinated contrast, and 0.1 mL of gadolinium. At the end of the procedure, the needle was removed. The overlying skin was cleansed and covered wit h a bandaid. The patient tolerated the procedure well and was free of immediate complications. The p atient was transferred for the MR portion of the exam in stable condition. Total fluoroscopic time: 16 seconds. One image acquired. IMPRESSION: Technically successful fluoroscopically guided right shoulder injection for the purposes of MR arthrogram. Electronically signed by: Starr Gastelum MD (07/16/2021 4:57 PM) [id number]
--- NOTE | 2021-07-16 17:07 | KCIC ---
EXAM: MRI RIGHT SHOULDER WITH CONTRAST INDICATION: Right shoulder pain and limited range of motion for over one year. Numbness down to hand. COMPARISON: MRI right shoulder 07/04/2020 TECHNIQUE: Multiplanar, multisequence imaging of the right shoulder after intra-articular injection o f contrast, performed separately. FINDINGS: ROTATOR CUFF: Mild tendinopathy at the junction of the posterior supraspinatus and anterior infraspin atus tendons is unchanged. No rotator cuff tear. No rotator cuff muscle atrophy or edema. LABRUM: The labrum is intact. BICEPS TENDON: The biceps tendon is intact and located. ACROMIOCLAVICULAR JOINT: Normal. Type II acromion without downsloping. GLENOHUMERAL JOINT: Articular cartilage is intact. No acute fracture or marrow signal abnormality. Al ignment is normal. OTHER: No joint effusion or intra-articular body. No subacromial-subdeltoid bursitis. IMPRESSION: 1. No rotator cuff tear or labral tear. 2. Unchanged mild tendinopathy of the posterior supraspinatus and anterior infraspinatus tendons. Electronically signed by: Starr Gastelum MD (07/16/2021 5:04 PM) [id number]
== END | disposition home or self-care (01) ==
LOC: KCIC 12:47
PROVIDERS: ATTEND Orthopaedic Surgery
DX: M25.511 Pain in right shoulder (principal); G89.29 Other chronic pain; M54.12 Radiculopathy, cervical region; J44.9 Chronic obstructive pulmonary disease, unspecified; M19.90 Unspecified osteoarthritis, unspecified site; F41.9 Anxiety disorder, unspecified; F32.9 Major depressive disorder, single episode, unspecified; F17.210 Nicotine dependence, cigarettes, uncomplicated; Z79.899 Other long term (current) drug therapy; Z98.890 Other specified postprocedural states; Z88.0 Allergy status to penicillin; Z88.2 Allergy status to sulfonamides; Z88.8 Allergy status to other drugs, medicaments and biological substances; Z72.89 Other problems related to lifestyle
CPT/HCPCS: 23350; 72141; 73222; 77002; A9575; J3490; Q9967

== ENCOUNTER 2021-12-11 13:32 | Emergency (ER) | payer MEDICAID, OTHER ==
[~2021-12-11] VITALS: Ht 157.5 cm; Wt 55.0 kg
[~2021-12-11 13:32] MED LIST changes: -GADOTERATE 7.5 MMOL/15ML VIAL. INT ART ONE; -IOHEXOL 300 MG/ML 50 ML VIAL. INT ART ONE; -LIDOCAINE 1% Multi-Dose 20 ML VIAL. ID ONE
[2021-12-11] MEDS ORDERED: LIDOCAINE 1% PF 2 ML VIAL. INJ ONE (14:15)
[2021-12-11] MEDS ORDERED: BUPIVACAINE MPF 0.5% 30 ML VIAL. INJ ONE (14:15)
--- NOTE | 2021-12-11 14:42 | RAD ---
XR FOOT_LEFT 3 VIEWS DATE: 12/11/2021 2:20 PM INDICATION: third toe pain kicked a couch COMPARISON: None. FINDINGS: Bones: Acute fracture of the fourth proximal phalanx diaphysis with less than one half shaft width me dial displacement of the distal digit. Joints: The joint spaces are normal. Miscellaneous: None. IMPRESSION: Acute displaced fourth proximal phalanx fracture Electronically signed by: Parveen Schneider MD (12/11/2021 2:40 PM) [id number]
[2021-12-11] MEDS ORDERED: NAPROXEN 500 MG TABLET PO STA (14:53)
[2021-12-11] MEDS ORDERED: HYDROcodone/APAP 5/325MG 1 TAB TABLET PO ONE (15:00)
--- NOTE | 2021-12-11 15:09 | PHYS DOC ---
Past Medical History Past Medical History: Anxiety, Arthritis, Bartholin Cyst, Depression, Unknown, Other Additional Past Medical Histor: PTSD, INSOMNIA Past Surgical History: No Surgical History Smoking Status: Current Every Day Smoker Alcohol Use: Rarely Drug Use: Marijuana General Adult EDM: Chief Complaint: TOE PROBLEM HPI: HPI: Patient is a 36 year old female who presents to the ED today with moderate pain to the left fourth toe after stubbing it on a chair. Patient states the pain is worse on weightbearing. Describes the pain as sharp and constant. Denies anything relieving the pain. Review of Systems: Review of Systems: Constitutional: Denies fever or chills. [] Musculoskeletal: Reports left fourth toe pain Integument: Denies rash. [] Neurologic: Denies headache, focal weakness or sensory changes. [] Psychiatric: Denies depression or anxiety. [] Heart Score: C/O Chest Pain: N/A Risk Factors: Risk Factors: DM, Current or recent (<one month) smoker, HTN, HLP, family history of CAD, obesity. Risk Scores: Score 0 - 3: 2.5% MACE over next 6 weeks - Discharge Home Score 4 - 6: 20.3% MACE over next 6 weeks - Admit for Clinical Observation Score 7 - 10: 72.7% MACE over next 6 weeks - Early Invasive Strategies Current Medications: Current Medications Medications (Trade) Dose Ordered Sig/Naeem Start Time Stop Time Status Last Admin Dose Admin Acetaminophen/ Hydrocodone Bitart (Lortab 5/325) 2 tab 1X ONCE 12/11/21 15:00 12/11/21 15:01 DC Bupivacaine HCl (Sensorcaine Mpf 0.5%) 30 ml 1X ONCE 12/11/21 14:15 12/11/21 14:16 Cancel Lidocaine HCl (Xylocaine-Mpf 1% 2ml Vial) 2 ml 1X ONCE 12/11/21 14:15 12/11/21 14:16 Cancel Naproxen (Naprosyn) 500 mg 1X STAT 12/11/21 14:53 12/11/21 14:56 DC Allergies: Allergies: Allergies Coded Allergies Type Severity Reaction Last Updated Verified Penicillins Allergy Unknown Hives 06/15/20 Yes sulfamethoxazole Allergy Unknown Hives 06/15/20 Yes trimethoprim Allergy Unknown Hives 06/15/20 Yes Physical Exam: PE: Constitutional: Well developed, well nourished, no acute distress, non-toxic appearance. [] Skin: Warm, dry, no erythema, no rash. [] Back: No tenderness, no CVA tenderness. [] Extremities: Left fourth toe appears obviously deformed. There is tenderness diffusely to the left fourth toe. Range of motion is limited to the left fourth toe. Cap refill less than 2 seconds the left fourth toe. Sensation intact to the left fourth toe. +2 left pedal pulse Neurologic: Alert and oriented X 3, normal motor function, normal sensory function, no focal deficits noted. [] Psychologic: Affect normal, judgement normal, mood normal. [] Current Patient Data: Vital Signs: Vital Signs Date Time Temp Pulse Resp B/P (MAP) Pulse Ox O2 Delivery O2 Flow Rate FiO2 12/11/21 14:12 98.2 117 16 136/68 (90) 96 Room Air 98.2 EKG: EKG: [] Radiology/Procedures: Radiology/Procedures: []PROCEDURE: FOOT LEFT 3V XR FOOT_LEFT 3 VIEWS DATE: 12/11/2021 2:20 PM INDICATION: third toe pain kicked a couch COMPARISON: None. FINDINGS: Bones: Acute fracture of the fourth proximal phalanx diaphysis with less than one half shaft width medial displacement of the distal digit. Joints: The joint spaces are normal. Miscellaneous: None. IMPRESSION: Acute displaced fourth proximal phalanx fracture Electronically signed by: Charu Schneider MD (12/11/2021 2:40 PM) [id number] DICTATED and SIGNED BY: CHARU SCHNEIDER MD DATE: 12/11/21 [id number] 0 Course & Med Decision Making: Course & Med Decision Making Pertinent Labs and Imaging studies reviewed. (See chart for details) This is a 36-year-old female patient presented to the ED today after stubbing her left fourth toe on furniture at home. Left foot x-rays interpreted by radiologist was noted for acute displaced fourth proximal phalanx fracture An attempt was done to reduce the left fourth toe, attempt was unsuccessful, patient could not tolerate the pain, left fourth toe was layo taped to the third toe, patient provided an orthopedic shoe by me. Provided Ortho for follow- up. Ice elevation encouraged. Dragon Disclaimer: Shakira Disclaimer: This electronic medical record was generated, in whole or in part, using a voice recognition dictation system. Departure Departure Impression: Primary Impression: Fracture of fourth toe, left, closed Qualified Codes: S92.502A - Displaced unspecified fracture of left lesser toe(s), initial encounter for closed fracture Disposition: HOME / SELF CARE / HOMELESS Condition: STABLE Referrals: Domenic BRITO MD (PCP) EDUIN BARDALES Jr. DO call his office tomorrow and set up a follow up appointment Patient Instructions: Toe Fracture with [facility] Additional Instructions: You have a fracture of the left fourth toe. Please contact the provided orthopedic doctor tomorrow morning and set up a follow-up appointment. Try to ice and elevate the extremity. Scripts Hydrocodone Bit/Acetaminophen (HYDROCODONE-APAP 5-325 ) 1 Tab Tablet 1 TAB PO PRN Q6HRS PRN for PAIN, #20 TAB 0 Refills Prov: CORTES TEJEDA APRN 12/11/21 Naproxen (NAPROXEN) 500 Mg Tablet 1 TAB PO BID for pain, #14 TAB 0 Refills Prov: CORTES TEJEDA APRN 12/11/21 CORTES TEJEDA APRN Dec 11, 2021 15:09
[2021-12-11] MEDS ORDERED: HYDR-2761 PO (15:33)
[2021-12-11] MEDS ORDERED: NAPR-514 PO (15:33)
[2021-12-11 15:45] VITALS: BP 106/68
--- NOTE | 2021-12-11 16:11 | RAD ---
Left foot 3 views. HISTORY: Attempted toe reduction 3 views were taken of the left foot. There is an angulated fracture of the proximal phalanx of the fo urth toe. There has been no change in the alignment or position compared to the prior study. IMPRESSION: 1. Angulated fracture proximal phalanx left fourth toe. Electronically signed by: Callum Ritchie MD (12/11/2021 4:08 PM) [facility]
== END 2021-12-11 15:49 | disposition home or self-care (01) ==
LOC: ER 13:32
DX: S92.502A Displaced unspecified fracture of left lesser toe(s), initial encounter for closed fracture (principal); F43.10 Post-traumatic stress disorder, unspecified; F17.200 Nicotine dependence, unspecified, uncomplicated; Z88.0 Allergy status to penicillin; Z88.1 Allergy status to other antibiotic agents; Z88.2 Allergy status to sulfonamides; W22.03XA Walked into furniture, initial encounter; Y93.89 Activity, other specified; Y92.89 Other specified places as the place of occurrence of the external cause; Y99.8 Other external cause status
CPT/HCPCS: 73630; 99284